=== PATIENT | female | born 1995 | race Caucasian/White ===

== ENCOUNTER 2022-04-12 22:46 | Emergency (ER) | payer MEDICAID, OTHER ==
[~2022-04-12] VITALS: Ht 154.9 cm; Wt 49.9 kg
[2022-04-12 22:46] VITALS: BP 105/78
[2022-04-13] MEDS ORDERED: PRED20TA2 PO (01:25)
[2022-04-13] MEDS ORDERED: methylPREDNISolone SOD SUCC 125 MG/2 ML VL IM ONE (01:30)
== END 2022-04-13 01:40 | disposition home or self-care (01) ==
LOC: ER 22:46
DX: T78.40XA Allergy, unspecified, initial encounter (principal); Z79.899 Other long term (current) drug therapy; Y92.89 Other specified places as the place of occurrence of the external cause
CPT/HCPCS: 96372; 99283; J2930

== ENCOUNTER 2022-09-18 00:48 | Emergency (ER) | payer MEDICAID ==
[~2022-09-18] VITALS: Ht 157.5 cm; Wt 50.0 kg
[~2022-09-18 00:48] MED LIST: PRED20TA2 PO
[2022-09-18] MEDS ORDERED: PENICILLIN G BENZ 1200000 UNITS/2 ML SYRG IM ONE (02:45)
[2022-09-18 03:39] VITALS: BP 103/66
== END 2022-09-18 03:57 | disposition home or self-care (01) ==
LOC: ER 00:48
DX: A51.49 Other secondary syphilitic conditions (principal); F17.210 Nicotine dependence, cigarettes, uncomplicated
CPT/HCPCS: 96372; 99283; J0561